=== PATIENT | male | born 1980 ===

== ENCOUNTER 2021-04-15 18:00 | Emergency (ER) | payer SELFPAY ==
[~2021-04-15] VITALS: Ht 154.9 cm; Wt 54.4 kg
[2021-04-15 18:02] VITALS: BP 143/96
== END 2021-04-15 19:32 | disposition left against medical advice (07) ==
LOC: ER 18:14
DX: R09.89 Other specified symptoms and signs involving the circulatory and respiratory systems (principal); Z53.21 Procedure and treatment not carried out due to patient leaving prior to being seen by health care provider